=== PATIENT | female | born 1980 | race American Indian/Alaskan Native ===

== ENCOUNTER 2020-07-08 14:56 | Emergency (ER) | payer SELFPAY ==
[2020-07-08 15:38] VITALS: BP 156/103
[2020-07-08] MEDS ORDERED: KETOROLAC 10 MG TAB PO ONE (15:41)
--- NOTE | 2020-07-08 15:49 | Emergency Department Report ---
ED General Adult HPI - General Chief complaint: Extremity Injury, Upper Stated complaint: RT ARM PAINS Time Seen by Provider: 07/08/20 15:41 Source: patient Mode of arrival: Ambulatory Limitations: No Limitations - History of Present Illness Initial comments: 40-year-old -[place] female patient presents with complaints of right shoulder pain x today. Patient states the pain has been intermittent for a few months and suddenly worsened today. She denies any injury to the shoulder, chest pain, shortness of breath, numbness/tingling/weakness in her arm or hand. She states there is some difficulty moving the shoulder due to pain. Patient rates her pain as a 10/10 in severity and describes it as a throbbing aching pain Severity scale (0 -10): 10 - Related Data Previous Rx's Medication Instructions Recorded Last Taken Type Ibuprofen [Motrin] 800 mg PO Q8HR PRN #30 tablet 05/11/16 Unknown Rx Ondansetron [Zofran Odt] 4 mg PO Q8HR PRN #20 tab.rapdis 05/11/16 Unknown Rx SUMAtriptan SUCCINATE [Imitrex] 50 mg PO BID #30 tablet 05/11/16 Unknown Rx Acetaminophen/Codeine [Tylenol 1 tab PO Q6H PRN #12 tab 07/08/20 Unknown Rx /Codeine # 3 tab] Diclofenac Sodium 75 mg PO BID PRN 7 Days #14 07/08/20 Unknown Rx tablet. Prednisone [predniSONE 10 mg 10 mg PO .TAPER #1 tab.ds.pk 07/08/20 Unknown Rx (6-Day Pack, 21 Tabs)] Allergies Allergy/AdvReac Type Severity Reaction Status Date / Time No Known Allergies Allergy Verified 05/11/16 09:44 ED Review of Systems ROS: Stated complaint: RT ARM PAINS Other details as noted in HPI Constitutional: denies: chills, fever, malaise Respiratory: denies: cough, shortness of breath Cardiovascular: denies: chest pain Gastrointestinal: denies: abdominal pain Musculoskeletal: arthralgia. denies: joint swelling Neurological: denies: weakness, numbness, paresthesias ED Past Medical Hx - Past Medical History Previous Medical History?: Yes Hx Hypertension: Yes Additional medical history: migraines - Surgical History Past Surgical History?: No - Social History Smoking Status: Current Every Day Smoker Substance Use Type: None - Medications Home Medications: Home Medications Medication Instructions Recorded Confirmed Last Taken Type Ibuprofen [Motrin] 800 mg PO Q8HR PRN #30 tablet 05/11/16 Unknown Rx Ondansetron [Zofran Odt] 4 mg PO Q8HR PRN #20 tab.rapdis 05/11/16 Unknown Rx SUMAtriptan SUCCINATE [Imitrex] 50 mg PO BID #30 tablet 05/11/16 Unknown Rx Acetaminophen/Codeine [Tylenol 1 tab PO Q6H PRN #12 tab 07/08/20 Unknown Rx /Codeine # 3 tab] Diclofenac Sodium 75 mg PO BID PRN 7 Days #14 07/08/20 Unknown Rx tablet. Prednisone [predniSONE 10 mg 10 mg PO .TAPER #1 tab.ds.pk 07/08/20 Unknown Rx (6-Day Pack, 21 Tabs)] ED Physical Exam - General Limitations: No Limitations General appearance: alert, in no apparent distress - Head Head exam: Present: atraumatic, normocephalic - Eye Eye exam: Present: normal appearance. Absent: scleral icterus - Neck Neck exam: Present: full ROM. Absent: tenderness - Respiratory Respiratory exam: Present: normal lung sounds bilaterally. Absent: respiratory distress - Cardiovascular Cardiovascular Exam: Present: regular rate, normal rhythm - Expanded Upper Extremity Exam Right Shoulder Exam: Present: tenderness (Humeral head). Absent: full ROM (Decreased secondary to pain), swelling, abrasion, laceration, ecchymosis, deformity, crepidus, dislocation, erythema Upper Arm exam: Present: normal inspection, full ROM Elbow exam: Present: normal inspection, full ROM Forearm Wrist exam: Present: normal inspection Hand Wrist exam: Present: normal inspection, full ROM - Neurological Exam Neurological exam: Present: alert, oriented X3 - Psychiatric Psychiatric exam: Present: normal affect, normal mood - Skin Skin exam: Present: warm, dry, intact, normal color. Absent: rash, cyanosis, diaphoretic ED Course Vital Signs 07/08/20 15:36 Temperature 98.4 F Pulse Rate 88 Respiratory 18 Rate Blood Pressure 156/103 [Left] O2 Sat by Pulse 99 Oximetry ED Medical Decision Making - Radiology Data Radiology results: report reviewed RIGHT SHOULDER 3 VIEW(S) INDICATION / CLINICAL INFORMATION: pain, no injury COMPARISON: None available. FINDINGS: BONES / JOINT(S): No acute fracture or subluxation. No significant arthritis. SOFT TISSUES: Globular calcific density noted adjacent to the greater tuberosity likely calcific tendinitis. - Medical Decision Making 40-year-old -[place] female patient presents with complaints of right shoulder pain x today. Patient states the pain has been intermittent for a few months and suddenly worsened today. She denies any injury to the shoulder, chest pain, shortness of breath, numbness/tingling/weakness in her arm or hand. She states there is some difficulty moving the shoulder due to pain. Patient rates her pain as a 10/10 in severity and describes it as a throbbing aching pain. X-ray shows the following: Globular calcific density noted adjacent to the greater tuberosity likely calcific tendinitis. Patient placed in a shoulder sling and given pain medication. Will discharge home with prednisone and diclofenac. Recommend follow-up with orthopedics within 3 days. Also recommend icing of the shoulder and rest. Strict return precautions were discussed in detail with patient who verbalized understanding peer Critical care attestation.: If time is entered above; I have spent that time in minutes in the direct care of this critically ill patient, excluding procedure time. ED Disposition Clinical Impression: Right shoulder tendinitis Disposition: DC-01 TO HOME OR SELFCARE Is pt being admited?: No Condition: Stable Instructions: Proximal Biceps Tendinitis and Tenosynovitis Rehab-SportsMed Prescriptions: Diclofenac Sodium 75 mg PO BID PRN 7 Days #14 tablet. PRN Reason: pain Prednisone [predniSONE 10 mg (6-Day Pack, 21 Tabs)] 10 mg PO .TAPER #1 tab.ds.pk Acetaminophen/Codeine [Tylenol /Codeine # 3 tab] 1 tab PO Q6H PRN #12 tab PRN Reason: Pain , Severe (7-10) Referrals: [facility] [Provider Group] - 2-3 Days
--- NOTE | 2020-07-08 16:21 | XRay Report ---
RIGHT SHOULDER 3 VIEW(S) INDICATION / CLINICAL INFORMATION: pain, no injury COMPARISON: None available. FINDINGS: BONES / JOINT(S): No acute fracture or subluxation. No significant arthritis. SOFT TISSUES: Globular calcific density noted adjacent to the greater tuberosity likely calcific tend initis. ADDITIONAL FINDINGS: None. Signer Name: Isai Reyna MD Signed: 07/08/2020 4:16 PM Workstation Name: [id number]
[2020-07-08] MEDS ORDERED: oxyCODONE /ACETAMINOPHEN 5-325MG TAB PO ONE (17:05)
== END 2020-07-08 17:36 | disposition home or self-care (01) ==
LOC: ED 14:56
DX: M77.8 Other enthesopathies, not elsewhere classified (principal)